=== PATIENT | male | born 1985 | race Caucasian/White ===

== ENCOUNTER 2019-05-22 14:20 | Emergency (ER) | payer SELFPAY ==
[~2019-05-22] VITALS: Ht 162.6 cm; Wt 81.8 kg
[~2019-05-22 14:20] MED LIST: DIVA-78 PO; RISP3 PO
[2019-05-22 16:32] VITALS: BP 158/92
== END 2019-05-22 17:04 | disposition home or self-care (01) ==
LOC: EMS 14:20
DX: R11.10 Vomiting, unspecified (principal); V89.2XXA Person injured in unspecified motor-vehicle accident, traffic, initial encounter; Y93.89 Activity, other specified; Y92.488 Other paved roadways as the place of occurrence of the external cause; Y99.8 Other external cause status

== ENCOUNTER 2023-12-18 13:07 | Emergency (ER) | payer MEDICAID ==
[~2023-12-18] VITALS: Ht 162.6 cm; Wt 68.2 kg
[2023-12-18 13:30] LABS: COVID AG,FIA SOURCE NASAL SWAB
[2023-12-18 13:44] VITALS: TEMP 98.2
[2023-12-18 13:49] LABS: SARS-COV2 (COVID) ANTIGEN,FIA Negative (Negative)
[2023-12-18 14:34] VITALS: BP 122/81; PULSE 84; RESP 18
== END 2023-12-18 14:39 | disposition home or self-care (01) ==
LOC: EMS 13:12
DX: J06.9 Acute upper respiratory infection, unspecified (principal); Z20.822 Contact with and (suspected) exposure to COVID-19
CPT/HCPCS: 99283